=== PATIENT | female | born 1980 | race Caucasian/White ===

== ENCOUNTER 2017-01-25 15:48 | Emergency (ER) | payer SELFPAY ==
[~2017-01-25] VITALS: Ht 157.5 cm; Wt 90.0 kg
[~2017-01-25 15:48] MED LIST: ALBU8.5H5 INH; PRED50TA PO; PROM6.25 PO
[2017-01-25 15:52] VITALS: Ht 157.5 cm; Wt 90.0 kg
[2017-01-25] MEDS ORDERED: IBUP-1542 PO (17:38)
[2017-01-25] MEDS ORDERED: CEPH-443 PO (17:38)
--- NOTE | 2017-01-25 18:09 | ERD ---
ER Documentation Chief Complaint Date/Time DATE: 01/25/17 TIME: 18:05 Chief Complaint LEFT FACIAL SWELLING X 3 DAYS HPI This is a 36-year-old female presents to the ER with left cheek swelling for the last 3 days. Patient states that 3 days ago she felt a slight irritation inside of her mouth however denies any dental pain. Since then she feels as if her left cheek is swollen. It is slightly warm to the touch. Patient denies any fevers or chills. She does admit to fatigue. She also admits to a slight sore throat. Patient denies any difficulty in swallowing. ROS 12 point review of systems was done, all negative except per HPI. Medications Home Meds Active Scripts Cephalexin* (Keflex*) 500 Mg Capsule, 500 MG PO BID for 7 Days, CAP Prov:LUKE CROWDER 01/25/17 Ibuprofen* (Motrin*) 600 Mg Tab, 600 MG PO Q6, #30 TAB Prov:LUKE CROWDER 01/25/17 Promethazine w/Codeine* (Phenergan w/Codeine* Syrup) 5 Ml Syrup, 5 ML PO Q4H Y for COUGH for 7 Days, ML Prov:MARTIN PETERSON PA-C 11/23/15 Prednisone* (Prednisone*) 50 Mg Tablet, 50 MG PO DAILY, #5 TAB Prov:MARTIN PETERSON PA-C 11/23/15 Albuterol Sulfate* (Albuterol Sulfate* HFA) 8.5 Gm Hfa.aer.ad, 1-2 PUFF INH Q4 Y for SHORTNESS OF BREATH, #1 EA Prov:MARTIN PETERSON PA-C 11/23/15 Reported Medications [None] No Conflict Check 09/18/13 [None] No Conflict Check 02/09/10 Allergies Allergies: Coded Allergies: No Known Allergies (Verified Allergy, Mild, 09/03/14) PMhx/Soc History of Surgery: Yes (CHOLECYSTECTOMY) Anesthesia Reaction: No Hx Neurological Disorder: No Hx Respiratory Disorders: Yes (STREP THROAT) Hx Cardiac Disorders: No Hx Psychiatric Problems: No Hx Miscellaneous Medical Probl: No Hx Alcohol Use: No Hx Substance Use: No Hx Tobacco Use: No Physical Exam Vitals Vital Signs Date Time Temp Pulse Resp B/P Pulse Ox O2 Delivery O2 Flow Rate FiO2 3/10/17 15:52 98.1 67 20 149/67 99 Physical Exam GENERAL: The patient is well developed and appropriate for usual state of health , in no apparent distress. HEENT: Atraumatic. Patient does have slight swelling of the left cheek. There is no evidence of dental abscess. Patient does not have any uvular deviation, kissing tonsils, erythematous tonsils. Patient does have multiple caries which have been filled. CHEST: Clear to auscultation bilaterally. There are no rales, wheezes or rhonchi. HEART: Regular rate and rhythm. No murmurs, clicks, rubs or gallops. NEURO: Alert and oriented. Procedures/MDM This is a 36-year-old female presents to the ER with left cheek swelling. Patient may have an infection going on as it is swollen and warm to the touch. I do not believe that this is a severe infection as she is afebrile and well- appearing. Patient does not have any difficulty in breathing or swallowing. I doubt tonsillar peritonsillar abscess. I doubt Osvaldo's angina. Patient will be sent home with Keflex. She she needs to follow-up with her primary care doctor within 1-2 days or return to ER sooner if symptoms worsen. My medical decision making was shared with the patient she understands and agrees with plan. Departure Diagnosis: Primary Impression: Swelling Condition: Stable Patient Instructions: Cellulitis, Facial Additional Instructions: Call your primary care doctor TOMORROW for an appointment during the next 1-2 days.See the doctor sooner or return here if your condition worsens before your appointment time. LUKE CROWDER Jan 25, 2017 18:09
== END 2017-01-25 18:00 | disposition home or self-care (01) ==
LOC: FTE 15:48
DX: R22.0 Localized swelling, mass and lump, head (principal)
CPT/HCPCS: 99283